=== PATIENT | female | born 1970 | race Caucasian/White ===

== ENCOUNTER → 2021-02-14 | Outpatient (CLI) | payer BC ==
[~2021-02-14] MED LIST: CIPRODEX OTIC7.5 ML OT; ERYTHROMYCIN E3.5 G3 OPHTHALMIC; NOHOMEMEDICATIONS
== END ==
LOC: M.RAD 14:29
PROVIDERS: ATTEND Family Medicine
DX: Z12.31 Encounter for screening mammogram for malignant neoplasm of breast (principal)

== ENCOUNTER → 2021-02-22 | Outpatient (CLI) | payer OTHER | LOC: M.ULTRA 10:21 | PROVIDERS: ATTEND Family Medicine | DX: N60.01 Solitary cyst of right breast (principal); N63.10 Unspecified lump in the right breast, unspecified quadrant ==